=== PATIENT | female | born 1985 | race Caucasian/White ===

== ENCOUNTER 2018-09-16 08:13 | Emergency (ER) | payer BC, OTHER ==
--- NOTE | 2018-09-16 09:17 | UC ---
Abdominal Pain Female HPI - HPI Summary HPI Summary: 33-year-old woman 33-year-old woman comes in with a chief complaint of abdominal pain and diarrhea. Patient's had on and off right upper quadrant abdominal pain that radiates to her flank for about 3 weeks. It's worse with food. In the last couple days she is developed diarrhea and she's been going approximately every hour. The diarrhea is watery. Has not seen any blood in the diarrhea. Patient has been able to drink liquids and does not feel dehydrated. No fevers or chills. No prior history of Crohn's or ulcerative colitis her celiac disease. Has had some lactose intolerance issues. No he also sick in the house. No prior abdominal surgeries. - History of Current Complaint Chief Complaint: UCAbdominalPain Stated Complaint: STOMACH ISSUES Time Seen by Provider: 09/16/18 09:01 Hx Last Menstrual Period: has mirena - no period in 9 years Pain Intensity: 3 Allergies/Adverse Reactions: Allergies Allergy/AdvReac Type Severity Reaction Status Date / Time No Known Allergies Allergy Verified 09/16/18 08:39 Home Medications: Home Medications Levonorgestrel (Iud) [Mirena IUD] 20 mcg IU 09/16/18 [History Confirmed 09/16/18 ] PMH/Surg Hx/FS Hx/Imm Hx Previously Healthy: Yes - Surgical History Surgical History: Yes Surgery Procedure, Year, and Place: tonsills - Family History Known Family History: Positive: Non-Contributory - Social History Alcohol Use: Rare Substance Use Type: None Smoking Status (MU): Light Every Day Tobacco Smoker Type: Cigarettes Amount Used/How Often: 2-3 cig per day Review of Systems All Other Systems Reviewed And Are Negative: Yes Constitutional: Positive: Negative Skin: Positive: Negative Eyes: Positive: Negative ENT: Positive: Negative Respiratory: Positive: Negative Cardiovascular: Positive: Negative Gastrointestinal: Positive: Abdominal Pain, Diarrhea Genitourinary: Positive: Negative Motor: Positive: Negative Neurovascular: Positive: Negative Musculoskeletal: Positive: Negative Neurological: Positive: Negative Psychological: Positive: Negative Is Patient Immunocompromised?: No Physical Exam Triage Information Reviewed: Yes Appearance: No Pain Distress, Well-Nourished, Ill-Appearing - MILD Vital Signs: Initial Vital Signs Temp 98 F 09/16/18 08:31 Pulse 84 09/16/18 08:31 Resp 16 09/16/18 08:31 BP 123/82 09/16/18 08:31 Pulse Ox 100 09/16/18 08:31 Vital Signs Reviewed: Yes Eye Exam: Normal Eyes: Positive: Conjunctiva Clear ENT: Positive: Other - ORAL MUCOSA MOIST Neck: Positive: Supple Respiratory: Positive: Lungs clear, Normal breath sounds, No respiratory distress Cardiovascular: Positive: RRR Abdomen Description: Positive: Nontender, Soft Bowel Sounds: Positive: Present Musculoskeletal Exam: Normal Musculoskeletal: Positive: Strength Intact, ROM Intact Neurological Exam: Normal Neurological: Positive: Alert, Muscle Tone Normal Psychological Exam: Normal Psychological: Positive: Normal Response To Family, Age Appropriate Behavior Skin Exam: Normal Abd Pain Female Course/Dx - Course Course Of Treatment: Patient Name: DOMINIQUE DIAZ Medical Record#: [id number] Ordering Physician: Pedro Balderrama MD Acct.#: [id number] : 1985 Age: 33 Sex: F Location: [facility] Exam Date: 09/16/18916 ADM Status: REG ER Order Information: US GALL BLADDER Accession Number: [id number] CPT: 59625 HISTORY: ruq pain COMPARISONS: None relevant available at the time of dictation. TECHNIQUE: Multiple transverse and longitudinal ultrasound images were obtained of the right upper quadrant of the abdomen using grayscale, color Doppler, and spectral Doppler imaging. FINDINGS: LIVER: There are echogenic portal triads. The liver is homogeneously enlarged measuring 19.5 cm. There is normal hepatopedal flow of the portal vein on Doppler imaging. BILIARY TREE: There is mild intrahepatic biliary dilatation in the left lobe. The common duct measures 0.3 cm. GALLBLADDER: There is a wall echo shadow complex with a 3.8 cm gallstone. There is no sonographic Rolle's sign. There is mild gallbladder wall thickening which may be an artifact of incomplete distention. PANCREAS: The head of the pancreas is unremarkable. The tail of the pancreas is not well visualized secondary to overlying bowel gas. RIGHT KIDNEY: The right kidney is normal in shape, size, contour, and echogenicity. There is no hydronephrosis or nephrolithiasis. The right kidney measures 12 x 4.3 x 4.6 cm. AORTA AND IVC: The aorta and IVC are unremarkable. Normal venous waveforms are identifiable on spectral Doppler imaging within the IVC. FLUID: There are no pleural effusions. There is no free fluid within the hepatorenal recess. OTHER FINDINGS: None. IMPRESSION: 1. CHOLELITHIASIS WITH MILD GALLBLADDER WALL THICKENING. 2. THERE IS MILD INTRAVASCULAR DILATATION. 3. HEPATOMEGALY. 4. ECHOGENIC PORTAL TRIADS WHICH CAN BE ASSOCIATED WITH HEPATITIS <Electronically signed by Charlie Dahl MD in OV> 09/16/18 1003 I discussed the ultrasound report with the patient and her family. Patient had no tenderness to palpation in the right upper quadrant on examination. The gallbladder was potentially incompletely distended. I discussed the ultrasound report with the surgeon on-call Dr. Sanchez. Given that the patient does not have a Rolle sign does not have a fever and does have diarrhea the overall plan will be to check stool sample and also get some blood work and have her follow up with primary care doctor. Also let her know that if anything got worse with right upper quadrant pain and fever or any focal area of pain dehydration not feeling well she started to get reevaluated right away the emergency department. - Differential Dx/Diagnosis Provider Diagnosis: Diarrhea, Right upper quadrant pain Discharge - Sign-Out/Discharge Documenting (check all that apply): Patient Departure All imaging exams completed and their final reports reviewed: Yes - Discharge Plan Condition: Stable Disposition: HOME Patient Education Materials: Acute Diarrhea (ED), Abdominal Pain (ED) Referrals: [facility] [place] [facility] REFERRAL [Outside] Additional Instructions: FOLLOW UP WITH YOUR DOCTOR. GO TO THE EMERGENCY DEPARTMENT IF YOUR CONDITION WORSENS; PAIN, FEVER, BLOOD IN YOUR STOOL, YOU FEEL LIKE PASSING OUT, DEHYDRATION OR ANY QUESTIONS OR CONCERNS. - Billing Disposition and Condition Condition: STABLE Disposition: Home
[2018-09-16 11:16] VITALS: BP 120/78
--- NOTE | 2018-09-17 12:47 | UC ---
- Progress Note Progress Note: PATIENT CALLED. NAME AND DATE OF VERIFIED. STATES SHE FEELS STABLE. SYMPTOMS ESSENTIALLY UNCHANGED. STILL HAVING SOME WATERY DIARRHEA. NO BLOOD THAT SHE CAN SEE. ADVISED THAT WHITE BLOOD CELL COUNT SLIGHTLY ELEVATED WHICH IS LIKELY REACTIVE DUE TO HER ACUTE CONDITION. CMP UNREMARKABLE. LIPASE WITHIN NORMAL LIMITS. STOOL STUDIES RETURNED WITH POSITIVE LACTOFERRIN AND POSITIVE OCCULT BLOOD. CULTURE STILL PENDING. O&P AND C. DIFFICILE NEGATIVE. PATIENT GIVEN CONTACT INFORMATION FOR [facility]. SHE HAS BEEN ENCOURAGED TO CALL BOTH OF THESE OFFICES FOR FOLLOW-UP APPOINTMENT. TO ER IF SX WORSEN. Course/Dx - Diagnoses Provider Diagnoses: Diarrhea, Right upper quadrant pain Discharge - Sign-Out/Discharge Documenting (check all that apply): Patient Departure, Post-Discharge Follow Up All imaging exams completed and their final reports reviewed: Yes - Discharge Plan Condition: Stable Disposition: HOME Patient Education Materials: Acute Diarrhea (ED), Abdominal Pain (ED) Referrals: [facility] [place] [facility] [Outside] Additional Instructions: FOLLOW UP WITH YOUR DOCTOR. GO TO THE EMERGENCY DEPARTMENT IF YOUR CONDITION WORSENS; PAIN, FEVER, BLOOD IN YOUR STOOL, YOU FEEL LIKE PASSING OUT, DEHYDRATION OR ANY QUESTIONS OR CONCERNS. - Billing Disposition and Condition Condition: STABLE Disposition: Home
[2018-09-17 17:09] LABS: Stool Helicobacter pylori Ag Negative (Negative)
--- NOTE | 2018-09-18 11:23 | UC ---
- Progress Note Progress Note: O&P NEGATIVE. H. PYLORI NEGATIVE. NO CHANGE IN MGMT. Course/Dx - Diagnoses Provider Diagnoses: Diarrhea, Right upper quadrant pain Discharge - Sign-Out/Discharge Documenting (check all that apply): Post-Discharge Follow Up All imaging exams completed and their final reports reviewed: Yes - Discharge Plan Condition: Stable Disposition: HOME Patient Education Materials: Acute Diarrhea (ED), Abdominal Pain (ED) Referrals: [facility] [place] [facility] REFERRAL [Outside] Additional Instructions: FOLLOW UP WITH YOUR DOCTOR. GO TO THE EMERGENCY DEPARTMENT IF YOUR CONDITION WORSENS; PAIN, FEVER, BLOOD IN YOUR STOOL, YOU FEEL LIKE PASSING OUT, DEHYDRATION OR ANY QUESTIONS OR CONCERNS. - Billing Disposition and Condition Condition: STABLE Disposition: Home
== END 2018-09-16 11:17 | disposition home or self-care (01) ==
LOC: UCEAST 08:13
DX: R10.11 Right upper quadrant pain (principal); R19.7 Diarrhea, unspecified; K92.1 Melena; K80.20 Calculus of gallbladder without cholecystitis without obstruction; R16.0 Hepatomegaly, not elsewhere classified; K76.89 Other specified diseases of liver; D72.829 Elevated white blood cell count, unspecified; F17.210 Nicotine dependence, cigarettes, uncomplicated
CPT/HCPCS: 76705; 81003; 82272; 83630; 84702; 87045; 87046; 87077; 87086; 87328; 87329; 87338; 87493; 87899; 99211; G0463

== ENCOUNTER 2019-08-19 10:05 | Day surgery (SDC) | payer SELFPAY ==
--- NOTE | 2019-08-19 10:16 | ED ---
Abdominal Pain/Female - HPI Summary HPI Summary: 34 year old F arriving via private car complains of RUQ pain currently rated 10/ 10 starting 2 days ago. Started as intermittent pain. Worse over the last couple of hours. The pain has become more severe and constant. Patient reports chills, nausea/vomiting x2, decreased appetite, constipation. She denies fever, diarrhea. Symptoms aggravated by nothing. Symptoms alleviated by nothing. She states she has 3 gallstones now. She was seen by MANPREET Caceres, over the summer. Medications reviewed. Allergies reviewed. No abdominal surgical hx. - History of Current Complaint Chief Complaint: EDAbdPain Stated Complaint: ABDOMINAL PAIN PER PT Time Seen by Provider: 08/19/19 10:10 Hx Obtained From: Patient Onset/Duration: Lasting Days - 2, Still Present, Worse Since - last couple of hours Timing: Constant Severity Currently: Severe Pain Intensity: 10 Pain Scale Used: 0-10 Numeric Location: Discrete At: RUQ Aggravating Factor(s): Nothing Alleviating Factor(s): Nothing Associated Signs and Symptoms: Positive: Negative - fever, diarrhea, Other: - chills, nausea/vomiting x2, decreased appetite, constipation Allergies/Adverse Reactions: Allergies Allergy/AdvReac Type Severity Reaction Status Date / Time No Known Allergies Allergy Verified 08/19/19 10:08 Home Medications: Home Medications Ibuprofen TAB* [Advil TAB*] 400 - 600 mg PO Q6H PRN 08/19/19 [History Confirmed 08/19/19] PMH/Surg Hx/FS Hx/Imm Hx Endocrine/Hematology History: Denies: Hx Diabetes, Hx Thyroid Disease Cardiovascular History: Denies: Hx Hypertension Respiratory History: Denies: Hx Asthma, Hx Chronic Obstructive Pulmonary Disease (COPD) GI History: Reports: Other GI Disorders - gallstones - Surgical History Surgical History: Yes Surgery Procedure, Year, and Place: tonsillectomy Infectious Disease History: No Infectious Disease History: Denies: Hx Hepatitis, Hx Human Immunodeficiency Virus (HIV), Traveled Outside the [place] in Last 30 Days - Family History Known Family History: Negative: Diabetes - Social History Alcohol Use: Rare Substance Use Type: Reports: None Hx Tobacco Use: Yes Smoking Status (MU): Light Every Day Tobacco Smoker Type: Cigarettes Amount Used/How Often: 2-3 cig per day Review of Systems Positive: Chills. Negative: Fever Positive: Abdominal Pain - RUQ, Vomiting, Nausea, Other - decreased appetite, constipation. Negative: Diarrhea All Other Systems Reviewed And Are Negative: Yes Physical Exam - Summary Physical Exam Summary: Constitutional: Well-developed, Well-nourished, Alert. (-) Distressed Skin: Warm, Dry HENT: Normocephalic; Atraumatic Eyes: Conjunctiva normal Neck: Musculoskeletal ROM normal neck. (-) JVD, (-) Stridor, (-) Nuchal rigidity Cardio: Rhythm regular, rate normal, Heart sounds normal; Intact distal pulses; Radial pulses are 2+ and symmetric. (-) Murmur Pulmonary/Chest wall: Effort normal. (-) Respiratory distress, (-) Wheezes, (-) Rales Abd: Soft, RUQ tenderness, (-) Distension, (+) Guarding, (-) Rebound Musculoskeletal: (-) Edema Lymph: (-) Cervical adenopathy Neuro: Alert, Oriented x3 Psych: Mood and affect Normal Triage Information Reviewed: Yes Vital Signs On Initial Exam: Initial Vitals Temp Pulse Resp BP Pulse Ox 98.0 F 85 19 154/119 98 08/19/19 10:06 08/19/19 10:06 08/19/19 10:06 08/19/19 10:06 08/19/19 10:06 Vital Signs Reviewed: Yes Procedures - Sedation Patient Received Moderate/Deep Sedation with Procedure: No Diagnostics - Vital Signs Vital Signs Temp Pulse Resp BP Pulse Ox 08/19/19 10:06 98.0 F 85 19 154/119 98 - Laboratory Result Diagrams: 08/19/19 10:23 08/19/19 10:23 Lab Statement: Any lab studies that have been ordered have been reviewed, and results considered in the medical decision making process. - Ultrasound ABDOMEN Ultrasound Interpretation Completed By: Radiologist - IMPRESSION: CHOLELITHIASIS WITH GALLBLADDER WALL THICKENING AND A POSITIVE SONOGRAPHIC DUBON SIGN, CONSISTENT WITH ACUTE CHOLECYSTITIS IN THE CORRECT CLINICAL SETTING. ED physician has reviewed this imaging report. Abdominal Pain Fem Course/Dx - Course Course Of Treatment: 34 y/o F w hx gallstones p/w RUQ pain, nausea and chills. - PE w RUQ tenderness. Afebrile. Labs w normal LFTs, no leukocytosis. - US concerning for cholecystitis. Given zosyn x1. Surgery consulted, admit. - Diagnoses Provider Diagnoses: Cholecystitis - Provider Notifications Discussed Care Of Patient With: Matrin Morelos Time Discussed With Above Provider: 11:23 Instructed by Provider To: Admit As Inpatient Discharge ED - Sign-Out/Discharge Documenting (check all that apply): Patient Departure - Discharge Plan Condition: Stable Disposition: ADMITTED TO [facility] Referrals: Jamaica Gupta MD [Primary Care Provider] - - Billing Disposition and Condition Condition: STABLE Disposition: Admitted to [facility] - Attestation Statements Document Initiated by Scribe: Yes Documenting Scribe: Mildred Cardenas Provider For Whom Libby is Documenting (Include Credential): Marilyn Urbina MD Scribe Attestation: IMildred, scribed for Marilyn Urbina MD on 08/19/19 at 1155. Scribe Documentation Reviewed: Yes Provider Attestation: The documentation as recorded by the scribeMildred accurately reflects the service I personally performed and the decisions made by me, Marilyn Urbina MD Status of Scribe Document: Viewed
[2019-08-19] MEDS ORDERED: Ondansetron INJ* 2 MG/ML VIAL IV ONE (10:17)
[2019-08-19] MEDS ORDERED: Morphine 4 MG/ML VIAL (1 ml) 4 MG/ML VIAL IV ONE ×3 (10:17→12:51)
[2019-08-19] MEDS ORDERED: NS 0.9% 1000 ML** 1,000 ML IV ONE (10:17)
[2019-08-19 10:32] LABS: ABS Eosinophils 0.2 10^3/ul (0-0.6); ABS Monocytes 0.6 10^3/ul (0-0.8); ABS Neutrophils 7.2 10^3/ul (1.5-7.7); Eosinophil % 2.3 %; Hematocrit 41 % (35-47); Hemoglobin 14.3 g/dL (12.0-16.0); Lymphocyte % 19.7 %; Mean Corpuscular HGB Conc 35 g/dL (31-36); Mean Corpuscular Hemoglobin 29 pg (27-31); Mean Corpuscular Volume 83 fL (80-97); Mean Platelet Volume 7.8 fL (7.4-10.4); Platelet Count 277 10^3/uL (150-450); Red Blood Count 4.89 10^6 /uL (3.70-4.87); Red Cell Distribution Width 13 % (10-15)
[2019-08-19 10:51] LABS: ALT 12 U/L (7-52); AST 14 U/L (13-39); Albumin 4.4 g/dL (3.2-5.2); Albumin/Globulin Ratio 1.5 (1-3); Alkaline Phosphatase 65 U/L (34-104); Anion Gap 7 mmol/L (2-11); BUN/Creatinine Ratio 13.6 (8-20); Blood Urea Nitrogen 11 mg/dL (6-24); CO2 Carbon Dioxide 23 mmol/L (22-32); Calcium 9.2 mg/dL (8.6-10.3); Chloride 106 mmol/L (101-111); EGFR African American 96.8 (>60); Globulin 2.9 g/dL (2-4); Glucose 108 mg/dL (70-100); Potassium 4.2 mmol/L (3.5-5.0); Sodium 136 mmol/L (135-145); Total Protein 7.3 g/dL (6.4-8.9)
[2019-08-19 10:56] LABS: HCG Pregnancy < 0.60 mIU/mL
[2019-08-19] MEDS ORDERED: Piperacillin/Tazobac ADVAN(*) 3.375 GM in NS 0.9% 100 ML* 100 ML IVPB ONE (11:21)
[2019-08-19] MEDS ORDERED: Piperacillin/Tazobac (*) 3.375 GM BAG ONE (11:54)
[2019-08-19] MEDS ORDERED: Famotidine IV* 10 MG/ML 2 ML (20 mg) IV SLOW PU ONE (12:34)
--- NOTE | 2019-08-19 12:34 | HP ---
CC: Dr. Jamaica Gupta; Dr. Galo; [facility] DATE OF ADMISSION: 08/19/2019. HISTORY OF PRESENT ILLNESS: I was contacted by the emergency room staff to evaluate Ms. Vazquez, a 34-year-old female who presented to the ER today in tears, stating that she probably had a gallbladde r infection. She had right upper quadrant pain for over two days now, but it had become worse in the last five hours. The patient new she had gallstones from previous visits, both to Urgent Care last year and with [facility]. She states that she has intermittent right upper quadrant pain, at times radiates to he r back about once a month. She was worked up with EGD and colonoscopy with no abnormal finding. She was not referred to a surgeon during this time. The patient describes this onset started similarly, only to worsen today and that is why she presente d to the emergency room. She tried cupping with some results and rest for pain relief. The pain wor sened with eating and the patient has not eaten since yesterday. She drank only a small bit today. She denies fevers, but she has had chills. No recent sick contacts. No cough. PAST MEDICAL HISTORY: None. PAST SURGICAL HISTORY: Tonsillectomy. MEDICATIONS: Ibuprofen as needed. ALLERGIES: No known drug allergies. FAMILY HISTORY: Noncontributory. SOCIAL HISTORY: She lives with her and child. She works at [employer]. She is a nonsmo ker, nondrinker. REVIEW OF SYSTEMS: No significant weight loss or weight gain. No complications with anesthesia. No respiratory illnesses. No cardiac disease. GI complaints as described. Work-up as described. No endocrine disorders. No bleeding or clotting disorders. No skin disorders. No seasonal allergies. No dysuria. PHYSICAL EXAMINATION GENERAL: She is alert and oriented times three, no apparent distress. VITAL SIGNS: She is afebrile. Vital signs are stable with the exception of blood pressure 158/102. HEENT: Normocephalic, atraumatic. Sclerae anicteric. Mucus membranes are moist. NECK: No lymphadenopathy. LUNGS: Clear to auscultation bilaterally. HEART: S1, S2. No murmurs appreciated. ABDOMEN: Soft, obese, tender at the right upper quadrant with positive Rolle sign. No skin changes . No hernias or masses. No CVA tenderness. EXTREMITIES: Within normal limits with no jaundice. LABORATORY DATA: Labs reviewed show a white count of 10, reference rate is 3.5 and 10.8. Chemistry panel had no CRP, but was within normal limits. The patient underwent ultrasound of the gallbladder which showed gallstones and gallbladder wall thic kening up to 6.5 mm, large 3.5 cm gallstone at the neck of the gallbladder, normal appearing common b ile duct. No pericholecystic fluid. IMPRESSION: Acute cholecystitis with gallstone at the neck of the gallbladder. RECOMMENDATIONS: IV antibiotics, IV fluid, NPO, and cholecystectomy. I recommended robotic cholecys tectomy. I outlined the details of the procedures, including the risks, benefits, and alternatives. The patient wishes to proceed. We spoke of the possible complications which include, but not limited to bleeding, infection, common bile duct injury, retained common bile duct stone, need for additiona l procedures or open procedure, and bile leak. The patient's questions were answered. She will be a dmitted to my service with IV fluids, antibiotics, and surgical intervention. [id number]/[facility] #: [id number]
[2019-08-19] MEDS ORDERED: Naloxone* 0.4 MG/ML 1 ML VIAL IV PRN (12:37)
[2019-08-19] MEDS ORDERED: HYDROmorphone INJ1* 1 MG/ML SYRINGE IV PRN (12:37)
[2019-08-19] MEDS ORDERED: Acetaminophen IV 1GM/100ML * 1,000 MG/100 ML VIAL IVPB ONE (12:37)
[2019-08-19] MEDS ORDERED: DiMENhydriNATE IV* 50 MG/ML VIAL IV PUSH PRN (12:37)
[2019-08-19] MEDS ORDERED: Lactated Ringers 1000 ML Bag* 1,000 ML IV SCH (13:00)
[2019-08-19] MEDS ORDERED: Famotidine IV* 10 MG/ML 2 ML (20 mg) ONE (13:38)
[2019-08-19] MEDS ORDERED: ceFAZolin 2 GM PREMIX in ORs 2 GM/50 ML BAG ONE (13:46)
[2019-08-19] MEDS ORDERED: Acetaminophen IV 1GM/100ML * 100 ML ONE (13:54)
[2019-08-19] MEDS ORDERED: Bupivacaine 0.25% SDV* 30 ML ONE (14:20)
[2019-08-19] MEDS ORDERED: Midazolam* 1 MG/ML 5 ML VIAL (5 MG) ONE (14:47)
[2019-08-19] MEDS ORDERED: Rocuronium* 10 MG/ML VIAL ONE (14:47)
[2019-08-19] MEDS ORDERED: fentaNYL* 50 MCG/ML 2 ML VIAL (100 MCG VIAL) ONE ×2 (14:47→15:17)
[2019-08-19] MEDS ORDERED: Dexamethasone IV* 4 MG/ML 1 ML (4 MG) ONE (15:17)
[2019-08-19] MEDS ORDERED: Propofol* 10 MG/ML 20 ML BTL ONE (15:17)
[2019-08-19] MEDS ORDERED: Ketorolac INJ* 30 MG/ML 1 ML VIAL ONE (15:17)
[2019-08-19] MEDS ORDERED: DiMENhydriNATE IV* 50 MG/ML VIAL ONE (15:17)
[2019-08-19] MEDS ORDERED: Lidocaine 2% PF * 5 ML VIAL ONE (15:17)
[2019-08-19] MEDS ORDERED: Succinylcholine* 20 MG/ML 10 ML VIAL ONE (15:17)
[2019-08-19] MEDS ORDERED: Ondansetron INJ* 2 MG/ML VIAL ONE (15:17)
[2019-08-19] MEDS ORDERED: Sugammadex * 500 MG/5 ML VIAL IV PUSH ONE (16:02)
[2019-08-19] MEDS ORDERED: HYDROmorphone INJ1* 1 MG/ML SYRINGE ONE (16:03)
--- NOTE | 2019-08-19 16:32 | BRIEFOPN ---
Brief Operative/Procedure Note - Operation Details Pre-Op Diagnosis: Acute cholecystitis with cholelithiasis Post-Op Diagnosis: Acute cholecystitis with cholelithiasis Procedures: Laparoscopic cholecystectomy Surgeon(s)/Proceduralists: Dr. Morelos. Assist: GRACIA Chappell Anesthesia: GETA Estimated Blood Loss: <20cc Findings: As above Specimen(s)/Culture(s) Description: Gallbladder Complications: None
--- NOTE | 2019-08-19 17:42 | OP ---
CC: Dr. Jamaica Gupta; [facility]; [facility] OPERATIVE REPORT: DATE OF OPERATION: 08/19/19 DATE OF : [birth year] SURGEON: Martin Morelos MD OTR DRIVER: GRACIA Pearl ANESTHESIOLOGIST: Dr. Bryant. ANESTHESIA: General anesthesia. PRE-OP DIAGNOSIS: Acute cholelithiasis. POST-OP DIAGNOSIS: Acute on chronic cholelithiasis. OPERATIVE PROCEDURE: Laparoscopic cholecystectomy. ESTIMATED BLOOD LOSS: Minimal blood loss. FLUIDS: Minimal crystalloid fluid given. SPECIMEN: Gallbladder. DRAINS: None. COUNTS: Lap, pad count and instrument counts correct at the end of the procedure. DESCRIPTION OF PROCEDURE: The patient was brought to the operating room and placed on the operating table in supine position. Preoperative antibiotics were given. Sequential devices were placed on koki ateral lower extremities. General anesthesia was induced. The patient's abdomen was prepped and eliseo ped in standard surgical fashion. A time-out was performed. A supraumbilical incision was made. The skin edges were then elevated and a Veress needle was insert ed into the abdominal cavity, which was then allowed to insufflate to a pressure of 15 mmHg. The pat ient tolerated the insufflation well. Veress needle was removed and a 12-mm optical trocar was inser oz through this site. Laparoscope was inserted. There was no evidence of injury. Review of the upp er abdomen showed an enlarged gallbladder. Additional trocars were then placed in the following posi tion: A 12-mm at the subxiphoid and two 5-mm along the right costal margin. Table was repositioned. Fundus of the gallbladder was identified. This was grasped and elevated ant eriorly. Adhesions to the omentum were taken down with both sharp and blunt dissection until the bod y of the gallbladder could be appreciated. This was edematous. When we got down to the neck of the gallbladder, there was a large stone that was able to be milked back into the body of the gallbladder . This gave us the ability to grasp the infundibular region and retract towards the right lower quad rant. Peritoneum off the medial aspect over the node of Calot was taken and lateral peritoneal attac hments were taken similarly. The cystic duct was identified. The cystic artery was then also identi fied. It was isolated, doubly clipped and ligated. We then dissected the posterior aspect of the ga llbladder where there was a thick rind consistent with chronic cholecystitis. I continued my dissecti on before taking the cystic duct because we could not identify common bile duct. Without the critica l view, I instead continued my dissection to the mid portion of the gallbladder posteriorly until it was clear that there was only 1 structure entering in the gallbladder. This was then doubly clipped and it was consistent with a single duct and the gallbladder was removed from the liver bed and place d in an endoscopic retrieval bag. Review of the cystic duct stump and cystic artery stump showed no bleeding and no bile. We irrigated . There was no spillage of bile. Hemostasis was excellent. Table was repositioned back to neutral. Camera was switched to the upper abdomen and the specimen was taken out of the umbilical port site af ter increasing the size of this incision. This was passed off as specimen and the umbilical incision was reapproximated with interrupted 0 Vicryl sutures using 3 sutures in all. Prior to tying these, we re-insufflated the abdomen to make sure we did not corn picker any structures underlying the fascia. When it was clear, we allowed the abdomen to collapse and the sutures were tied and all 4 skin incisi ons were reapproximated with 4-0 Monocryl subcuticular sutures followed by Steri-Strips and sterile d ressing. The patient tolerated the procedure well and was transferred to the PACU in stable conditio n. [id number]/[facility] #: [id number]
[2019-08-19] MEDS ORDERED: Furosemide IV* 10 MG/ML 2 ML VIAL (20 MG) IV ONE (18:37)
[2019-08-19] MEDS ORDERED: Furosemide IV* 10 MG/ML 2 ML VIAL (20 MG) ONE (18:37)
[2019-08-19 19:52] VITALS: BP 115/76
== END 2019-08-19 22:37 | disposition home or self-care (01) ==
LOC: ED 10:05 → OR 14:36
PROVIDERS: ATTEND Surgery
DX: K80.12 Calculus of gallbladder with acute and chronic cholecystitis without obstruction (principal); R10.11 Right upper quadrant pain; R11.2 Nausea with vomiting, unspecified
CPT/HCPCS: 36415; 76705; 80053; 83690; 84702; 85025; 88304; 96365; 96375; 96376; 99285; J0330; J0690; J1100; J1170; J1240; J1885; J1940; J2250; J2270; J2405; J2543; J2704; J3010; J3490